=== PATIENT | male | born 1995 | race Caucasian/White ===

== ENCOUNTER 2017-05-06 16:41 | Emergency (ER) | payer SELFPAY ==
[2017-05-06 17:03] VITALS: BP 165/88
--- NOTE | 2017-05-06 17:22 | UC ---
Skin Complaint HPI - HPI Summary HPI Summary: 21 yo male who developed 2 red areas on his right calloway that he assumed were insect bites mild pruritis today they both became markedly more swollen/painful and red no f/c no hx MRSA no n/v/d - History of Current Complaint Chief Complaint: UCSkin Time Seen by Provider: 05/06/17 17:20 Stated Complaint: BUG BITE,INFLAMED Hx Obtained From: Patient Onset/Duration: Gradual Onset, Lasting Days Timing: Constant Onset Severity: Mild Current Severity: Moderate Pain Intensity: 6 Pain Scale Used: 0-10 Numeric Location: Discrete Character: Swelling, Pain, Redness, Raised, Painful Aggravating Factor(s): Touch Associated Signs & Symptoms: Positive: Tenderness Related History: Insect Bite/Sting - ?? - Allergy/Home Medications Allergies/Adverse Reactions: Allergies Allergy/AdvReac Type Severity Reaction Status Date / Time Pollen Extract Allergy Itching Verified 01/28/16 00:32 eyes Review of Systems Constitutional: Negative Skin: Negative Eyes: Negative ENT: Negative Respiratory: Negative Cardiovascular: Negative Gastrointestinal: Negative Genitourinary: Negative Motor: Negative Neurovascular: Negative Musculoskeletal: Negative Neurological: Negative Psychological: Negative Is Patient Immunocompromised?: No All Other Systems Reviewed And Are Negative: Yes PMH/Surg Hx/FS Hx/Imm Hx Previously Healthy: Yes - hx Lyme disease Cardiovascular History: Hypertension - untreated - Surgical History Surgical History: Yes Surgery Procedure, Year, and Place: ear tubes age 2 - Family History Known Family History: Positive: Hypertension, Diabetes - Social History Alcohol Use: Daily Alcohol Amount: 5-6 drinks per day Substance Use Type: Marijuana, Synthetic Drugs, Prescribed, Sedatives Substance Use Comment - Amount & Last Used: use to use cocaine and heroin Smoking Status (MU): Light Every Day Tobacco Smoker Type: Cigarettes Have You Smoked in the Last Year: Yes - Immunization History Most Recent Influenza Vaccination: not this year Most Recent Tetanus Shot: [facility] Most Recent Pneumonia Vaccination: NONE Physical Exam Triage Information Reviewed: Yes Appearance: Well-Appearing, No Pain Distress, Well-Nourished Vital Signs: Initial Vital Signs Temp 98 F 05/06/17 16:48 Pulse 85 05/06/17 16:48 Resp 18 05/06/17 16:48 BP 165/88 05/06/17 16:48 Pulse Ox 100 05/06/17 16:48 Vital Signs Reviewed: Yes Eyes: Positive: Conjunctiva Clear ENT: Positive: Hearing grossly normal. Negative: Nasal congestion, Nasal drainage, Trismus, Muffled/hoarse voice Neck: Positive: Supple, Nontender, No Lymphadenopathy Respiratory: Positive: Lungs clear, Normal breath sounds, No respiratory distress, No accessory muscle use Cardiovascular: Positive: RRR, No Murmur Musculoskeletal: Positive: Strength Intact, ROM Intact Neurological: Positive: Alert Psychological Exam: Normal Skin Exam: Other - see image Course/Dx - Diagnoses Provider Diagnoses: right calloway cellulitis? early abscess. concern for MRSA Procedures - Procedure Summary Procedure Summary: procedure: Incision and drainage right calloway permit signed time out sterile prep anest with 2 cc lido /ep incised with 11 blade <1cc serosangious fluid expressed and cultured...no ani pus - Incision and Drainage Site: right calloway Anesthesia: Local Instrument(s): Scalpel Packing: Other - none Discharge - Discharge Plan Condition: Stable Disposition: HOME Prescriptions: Cephalexin CAP* [Keflex CAP*] 500 mg PO QID #28 cap Naproxen Sodium [Naproxen Sodium 500 MG TAB] 500 mg PO BID PRN #28 tab PRN Reason: Pain Sulfamethox/Trimethoprim DS* [Bactrim DS 800/160 TAB*] 1 tab PO BID #14 tab Patient Education Materials: Cellulitis (ED) Forms: *Work Release Referrals: [facility] [Outside] [facility] [place] [Outside] - As Soon As Possible No Primary Care Phys,NOPCP [Primary Care Provider] - Additional Instructions: we will start you on two antibiotics initially we may be able to just keep you on one when we get the culture results back it takes 2-3 days to get the culture results back rest elevate frequent warm soapy compresses while awake TO ER FOR: increased pain increased swelling/redness FEVER vomiting recheck in 2 days if not improved take another bactrim tonight take two keflex tonight YOU NEED TO HAVE YOUR BLOOD PRESSURE FOLLOWED today it was high Images Front/Back of Body, Lg ([place]): 1 - ? bite with surrounding eryhema 2 - area of redness/induration ? flutuance
[2017-05-06] MEDS ORDERED: Lidocaine 2% W/EPI 1:100,000* 20 ML MDV INJ ONE (17:32)
[2017-05-06] MEDS ORDERED: Sulfamethox/Trimethoprim DS 800/160* TAB PO ONE (17:32)
== END 2017-05-06 18:10 | disposition home or self-care (01) ==
LOC: UCEAST 16:41
DX: L02.415 Cutaneous abscess of right lower limb (principal); F17.210 Nicotine dependence, cigarettes, uncomplicated
CPT/HCPCS: 10060; 87070; 87205; 99212; A9270-GY; G0463

== ENCOUNTER 2017-11-18 23:26 | Emergency (ER) | payer SELFPAY ==
[2017-11-18] MEDS ORDERED: Ibuprofen TAB* 600 MG PO ONE (23:43)
[2017-11-18] MEDS ORDERED: oxyCODONE/Acetamin 5/325 MG* TAB PO ONE (23:43)
[2017-11-18] MEDS ORDERED: Bacitracin OINTMENT* 0.5% 0.5 oz TUBE TOPICAL ONE (23:43)
[2017-11-19 00:14] VITALS: BP 156/109
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
== END 2017-11-19 00:13 | disposition home or self-care (01) ==
LOC: ED 23:26
DX: T22.232A Burn of second degree of left upper arm, initial encounter (principal); T22.122A Burn of first degree of left elbow, initial encounter; T31.0 Burns involving less than 10% of body surface; X12.XXXA Contact with other hot fluids, initial encounter; Y93.G3 Activity, cooking and baking; Y92.511 Restaurant or cafe as the place of occurrence of the external cause; Y99.0 Civilian activity done for income or pay; K21.9 Gastro-esophageal reflux disease without esophagitis; F90.9 Attention-deficit hyperactivity disorder, unspecified type; F32.9 Major depressive disorder, single episode, unspecified; Z91.5 Personal history of self-harm; F17.210 Nicotine dependence, cigarettes, uncomplicated
CPT/HCPCS: 16020; 99282; A9270-GY

== ENCOUNTER 2019-01-11 16:51 | Emergency (ER) | payer OTHER ==
[2019-01-11] MEDS ORDERED: NS 0.9% 1000 ML** 1,000 ML IV ONE (20:23)
[2019-01-11] MEDS ORDERED: Pantoprazole IV* 40 MG IV ONE (20:23)
[2019-01-11 20:43] LABS: ABS Basophils 0.1 10^3/ul (0-0.2); ABS Eosinophils 0.2 10^3/ul (0-0.6); ABS Lymphocytes 2.3 10^3/ul (1.0-4.8); ABS Monocytes 0.8 10^3/ul (0-0.8); ABS Neutrophils 4.3 10^3/ul (1.5-7.7); Eosinophil % 2.8 %; Hematocrit 46 % (42-52); Lymphocyte % 29.7 %; Mean Corpuscular HGB Conc 35 g/dL (31-36); Mean Corpuscular Hemoglobin 32 pg (27-31); Mean Corpuscular Volume 92 fL (80-94); Mean Platelet Volume 7.4 fL (7.4-10.4); Nucleated Red Blood Cells % 0.2; Platelet Count 258 10^3/uL (150-450); Red Blood Count 4.94 10^6 /uL (4.18-5.48); Red Cell Distribution Width 13 % (10-15); White Blood Count 7.6 10^3/uL (3.5-10.8)
[2019-01-11 21:00] LABS: Albumin 4.5 g/dL (3.2-5.2); Albumin/Globulin Ratio 1.6 (1-3); BUN/Creatinine Ratio 11.5 (8-20); Calcium 9.7 mg/dL (8.6-10.3); EGFR African American 116.4 (>60); EGFR Non-African American 96.2 (>60); Globulin 2.8 g/dL (2-4); Magnesium 2.1 mg/dL (1.9-2.7); Potassium 4.7 mmol/L (3.5-5.0); Total Bilirubin 0.5 mg/dL (0.2-1.0); Total Protein 7.3 g/dL (6.4-8.9)
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
[2019-01-11] MEDS ORDERED: Iohexol 300* (CONTRAST) 10 ML SDV IV ONE (21:34)
[2019-01-11 23:54] VITALS: BP 0/0
== END 2019-01-11 23:40 | disposition home or self-care (01) ==
LOC: ED 16:51
DX: R10.32 Left lower quadrant pain (principal); M54.9 Dorsalgia, unspecified; F17.210 Nicotine dependence, cigarettes, uncomplicated
CPT/HCPCS: 36415; 74177; 80053; 82150; 83690; 83735; 85025; 86140; 99282; Q9967

== ENCOUNTER 2019-10-12 10:09 | Inpatient (IN) | payer OTHER ==
[2019-10-12] MEDS ORDERED: NS 0.9% 1000 ml BAG 1,000 ML IV ONE ×2 (10:29→13:52)
[2019-10-12] MEDS ORDERED: Morphine 4 MG/ML VIAL (1 ml) IV ONE ×2 (10:29→12:20)
[2019-10-12 11:10] LABS: ABS Eosinophils 0.4 10^3/ul (0-0.6); ABS Lymphocytes 1.7 10^3/ul (1.0-4.8); ABS Monocytes 0.8 10^3/ul (0-0.8); Eosinophil % 4.4 %; Hematocrit 42 % (42-52); Hemoglobin 14.7 g/dL (14.0-18.0); Lymphocyte % 18.3 %; Mean Corpuscular HGB Conc 35 g/dL (31-36); Mean Corpuscular Hemoglobin 32 pg (27-31); Mean Corpuscular Volume 92 fL (80-94); Platelet Count 379 10^3/uL (150-450); Red Blood Count 4.56 10^6 /uL (4.18-5.48); Red Cell Distribution Width 13 % (10-15); White Blood Count 9.2 10^3/uL (3.5-10.8)
[2019-10-12 11:35] LABS: Albumin 4.2 g/dL (3.2-5.2); Albumin/Globulin Ratio 1.7 (1-3); C Reactive Protein 20.8 mg/L (<8.01); EGFR African American 110.2 (>60); Globulin 2.5 g/dL (2-4); Potassium 4.1 mmol/L (3.5-5.0); Total Bilirubin 0.4 mg/dL (0.2-1.0); Total Protein 6.7 g/dL (6.4-8.9)
[2019-10-12] MEDS ORDERED: Iohexol 300 (CONTRAST) 10 ML SDV IV ONE (11:59)
[2019-10-12] MEDS ORDERED: Piperacillin/Tazobac ADVAN(*) 3.375 GM in NS 0.9% 100 ml BAG 100 ML IVPB ONE (12:14)
[2019-10-12] MEDS: HYDROmorphone 0.5 MG/0.5 ML SYRINGE IV SLOW PU PRN ×6 (14:04→23:55)
[2019-10-12] MEDS ORDERED: Zosyn per Pharmacy NOTE FOLLOW UP PRN (14:10)
[2019-10-12] MEDS: NS 0.9% 1000 ml BAG 1,000 ML IV SCH (14:54)
[2019-10-12 15:13] LABS: Urine Appearance Clear; Urine Bilirubin Negative (Negative); Urine Blood Negative (Negative); Urine Color Straw; Urine Glucose Negative (Negative); Urine Ketones Negative (Negative); Urine Nitrite Negative (Negative); Urine Protein Negative (Negative); Urine Specific Gravity 1.042 (1.010-1.030); Urine Urobilinogen Negative (Negative)
[2019-10-12] MEDS ORDERED: Thiamine 100 MG/ML 2 ml VIAL (200 mg) IM ONE (15:42)
[2019-10-12] MEDS ORDERED: LORazepam 1 mg TAB (*) PO SCH (16:00)
[2019-10-12] MEDS: Piperacillin/Tazobactam VIAL*) 3.375 GM in NS 0.9% 100 ml BAG 100 ML IVPB SCH ×2 (16:21→23:59)
[2019-10-12] MEDS: Multivitamins/Minerals TAB PO SCH (16:24)
[2019-10-13] MEDS: HYDROmorphone 0.5 MG/0.5 ML SYRINGE IV SLOW PU PRN ×13 (01:27→23:31)
[2019-10-13 04:23] LABS: Hematocrit 40 % (42-52); Mean Corpuscular HGB Conc 35 g/dL (31-36); Mean Corpuscular Hemoglobin 32 pg (27-31); Mean Corpuscular Volume 92 fL (80-94); Mean Platelet Volume 7.3 fL (7.4-10.4); Platelet Count 328 10^3/uL (150-450); Red Blood Count 4.39 10^6 /uL (4.18-5.48); Red Cell Distribution Width 12 % (10-15); White Blood Count 13.1 10^3/uL (3.5-10.8)
[2019-10-13 04:40] LABS: Albumin 3.8 g/dL (3.2-5.2); Albumin/Globulin Ratio 1.4 (1-3); C Reactive Protein 143.66 mg/L (<8.01); Calcium 8.9 mg/dL (8.6-10.3); EGFR African American 110.2 (>60); Globulin 2.8 g/dL (2-4); Potassium 3.6 mmol/L (3.5-5.0); Total Bilirubin 0.9 mg/dL (0.2-1.0); Total Protein 6.6 g/dL (6.4-8.9)
[2019-10-13 04:55] LABS: ABS Basophils 0.1 10^3/ul (0-0.2); ABS Eosinophils 0.1 10^3/ul (0-0.6); ABS Lymphocytes 1.2 10^3/ul (1.0-4.8); ABS Monocytes 0.9 10^3/ul (0-0.8); Eosinophil % 0.8 %; Lymphocyte % 9.6 %
[2019-10-13] MEDS: NS 0.9% 1000 ml BAG 1,000 ML IV SCH ×4 (06:15→21:06)
[2019-10-13] MEDS: Multivitamins/Minerals TAB PO SCH (08:03)
[2019-10-13] MEDS: Piperacillin/Tazobactam VIAL*) 3.375 GM in NS 0.9% 100 ml BAG 100 ML IVPB SCH ×2 (08:03→16:14)
[2019-10-13] MEDS ORDERED: Influenza VAC *QUAD* 2019-20* 0.5 ML SYRINGE IM ONE (09:00)
[2019-10-13 11:14] LABS: Chlamydia trachomatis NAA Negative (Negative); Neisseria gonorrhoeae (GC) NAA Negative (Negative)
[2019-10-13] MEDS ORDERED: Midazolam 5 mg/5 ml VIAL 1 mg/ml 5 ml VIAL (5 mg) ONE (11:27)
[2019-10-13] MEDS ORDERED: fentaNYL 100 mcg/2 ml 50 MCG/ML VIAL ONE (11:27)
[2019-10-13] MEDS ORDERED: Rocuronium 50 mg VIAL 10 mg/ml 5 ml VIAL (50 mg) ONE (11:30)
[2019-10-13] MEDS: Nicotine PATCH 21 MG/24 HR PATCH TRANSDERM SCH (11:43)
[2019-10-14] MEDS: Piperacillin/Tazobactam VIAL*) 3.375 GM in NS 0.9% 100 ml BAG 100 ML IVPB SCH ×3 (00:34→18:20)
[2019-10-14] MEDS: HYDROmorphone 0.5 MG/0.5 ML SYRINGE IV SLOW PU PRN ×6 (00:35→09:17)
[2019-10-14] MEDS: NS 0.9% 1000 ml BAG 1,000 ML IV SCH ×3 (04:24→14:42)
[2019-10-14 05:53] LABS: ABS Basophils 0.1 10^3/ul (0-0.2); ABS Eosinophils 0.1 10^3/ul (0-0.6); ABS Lymphocytes 0.9 10^3/ul (1.0-4.8); Eosinophil % 0.4 %; Hematocrit 41 % (42-52); Hemoglobin 13.9 g/dL (14.0-18.0); Lymphocyte % 6.9 %; Mean Corpuscular HGB Conc 34 g/dL (31-36); Mean Corpuscular Hemoglobin 32 pg (27-31); Mean Corpuscular Volume 93 fL (80-94); Platelet Count 322 10^3/uL (150-450); Red Blood Count 4.39 10^6 /uL (4.18-5.48); Red Cell Distribution Width 12 % (10-15); White Blood Count 13.3 10^3/uL (3.5-10.8)
[2019-10-14 06:09] LABS: C Reactive Protein 217.76 mg/L (<8.01); Calcium 8.8 mg/dL (8.6-10.3); EGFR African American 127.7 (>60); EGFR Non-African American 105.5 (>60); Potassium 3.5 mmol/L (3.5-5.0)
[2019-10-14] MEDS: Multivitamins/Minerals TAB PO SCH (07:46)
[2019-10-14] MEDS: Nicotine PATCH 21 MG/24 HR PATCH TRANSDERM SCH (07:46)
[2019-10-14] MEDS ORDERED: Bupivacaine 0.25% SDV 30 ML ONE (08:56)
[2019-10-14] MEDS ORDERED: fentaNYL 250 mcg/5 ml 50 MCG/ML 5 ml VIAL (250 MCG) ONE (09:41)
[2019-10-14] MEDS ORDERED: Midazolam 10 mg/10 ml VIAL 1 mg/ml 10 ml VIAL (10 mg) ONE (09:41)
[2019-10-14] MEDS ORDERED: Rocuronium 50 mg VIAL 10 mg/ml 5 ml VIAL (50 mg) ONE (09:41)
[2019-10-14] MEDS ORDERED: Ketamine HCL 50 mg/ml 10 ml VIAL (500 MG) ONE (09:41)
[2019-10-14] MEDS ORDERED: Lidocaine 2% PF 5 ML VIAL ONE (10:25)
[2019-10-14] MEDS ORDERED: HYDROmorphone 1 MG/1 ML SYRINGE ONE ×2 (10:26→12:01)
[2019-10-14] MEDS ORDERED: Ondansetron 4 mg VIAL 2 MG/ML 2 ml VIAL ONE (10:26)
[2019-10-14] MEDS ORDERED: Propofol 10 MG/ML 20 ML BTL ONE (10:26)
[2019-10-14] MEDS ORDERED: Prochlorperazine 5 mg/ml 2 ml VIAL (10 mg) ONE ×2 (10:26→12:48)
[2019-10-14] MEDS ORDERED: Sugammadex 500 MG/5 ML 5 ml VIAL IV PUSH ONE (10:26)
[2019-10-14] MEDS ORDERED: HYDROmorphone 1 MG/1 ML SYRINGE IV PRN (10:35)
[2019-10-14] MEDS ORDERED: Naloxone 0.4 mg VIAL 0.4 mg/ml 1 ml VIAL IV PRN (10:35)
[2019-10-14] MEDS ORDERED: Prochlorperazine 5 mg/ml 2 ml VIAL (10 mg) IV PRN (10:35)
[2019-10-14] MEDS ORDERED: fentaNYL 100 mcg/2 ml 50 MCG/ML VIAL ONE (12:47)
[2019-10-14] MEDS: fentaNYL 100 mcg/2 ml 50 MCG/ML VIAL IV PRN ×2 (12:49→13:42)
[2019-10-14] MEDS ORDERED: Naloxone 0.4 mg VIAL 0.4 mg/ml 1 ml VIAL IV PUSH PRN (13:09)
[2019-10-14] MEDS: HYDROmorphone PCA 20 MG/20 ML PCA.SYRING PCA SCH (14:53)
[2019-10-14] MEDS ORDERED: HYDROmorphone PCA 20 MG/20 ML PCA.SYRING PCA SCH (15:00)
[2019-10-14 15:23] LABS: ABS Lymphocytes 0.9 10^3/ul (1.0-4.8); ABS Monocytes 1.1 10^3/ul (0-0.8); Eosinophil % 0.1 %; Hematocrit 44 % (42-52); Hemoglobin 15.3 g/dL (14.0-18.0); Lymphocyte % 6.3 %; Mean Corpuscular HGB Conc 35 g/dL (31-36); Mean Corpuscular Hemoglobin 32 pg (27-31); Mean Corpuscular Volume 92 fL (80-94); Platelet Count 347 10^3/uL (150-450); Red Blood Count 4.77 10^6 /uL (4.18-5.48); Red Cell Distribution Width 12 % (10-15); White Blood Count 14.2 10^3/uL (3.5-10.8)
[2019-10-14 15:31] LABS: Activated Partial Thrombo Time 31.4 seconds (26.0-38.0); INR 1.16 (0.82-1.09)
[2019-10-14 15:39] LABS: EGFR African American 122.8 (>60); EGFR Non-African American 101.5 (>60)
[2019-10-14] MEDS: Famotidine IV 10 MG/ML 2 ml VIAL (20 mg) IV SLOW PU SCH (21:30)
[2019-10-15] MEDS: Piperacillin/Tazobactam VIAL*) 3.375 GM in NS 0.9% 100 ml BAG 100 ML IVPB SCH ×3 (00:26→16:09)
[2019-10-15] MEDS: NS 0.9% 1000 ml BAG 1,000 ML IV SCH ×2 (04:43→19:02)
[2019-10-15 05:27] LABS: Hematocrit 42 % (42-52); Hemoglobin 14.5 g/dL (14.0-18.0); Mean Corpuscular HGB Conc 35 g/dL (31-36); Mean Corpuscular Hemoglobin 32 pg (27-31); Mean Corpuscular Volume 93 fL (80-94); Mean Platelet Volume 7.3 fL (7.4-10.4); Platelet Count 353 10^3/uL (150-450); Red Blood Count 4.51 10^6 /uL (4.18-5.48); Red Cell Distribution Width 13 % (10-15); White Blood Count 11.1 10^3/uL (3.5-10.8)
[2019-10-15 05:42] LABS: BUN/Creatinine Ratio 8.5 (8-20); EGFR African American 118.3 (>60); EGFR Non-African American 97.8 (>60); Potassium 3.9 mmol/L (3.5-5.0)
[2019-10-15] MEDS: Multivitamins/Minerals TAB PO SCH (07:53)
[2019-10-15] MEDS: HYDROmorphone PCA 20 MG/20 ML PCA.SYRING PCA SCH (08:01)
[2019-10-15] MEDS: Famotidine IV 10 MG/ML 2 ml VIAL (20 mg) IV SLOW PU SCH ×2 (09:56→22:09)
[2019-10-15] MEDS: Heparin 5000 UNITS/ML VIAL(*) 1 ml vial SUBCUT SCH ×2 (09:58→22:09)
[2019-10-15] MEDS: Nicotine PATCH 21 MG/24 HR PATCH TRANSDERM SCH (10:02)
[2019-10-16] MEDS: Piperacillin/Tazobactam VIAL*) 3.375 GM in NS 0.9% 100 ml BAG 100 ML IVPB SCH ×3 (00:19→17:06)
[2019-10-16 04:49] LABS: ABS Eosinophils 0.5 10^3/ul (0-0.6); ABS Lymphocytes 0.9 10^3/ul (1.0-4.8); ABS Monocytes 1.2 10^3/ul (0-0.8); Eosinophil % 4.8 %; Hematocrit 38 % (42-52); Hemoglobin 13.2 g/dL (14.0-18.0); Lymphocyte % 9.7 %; Mean Corpuscular HGB Conc 35 g/dL (31-36); Mean Corpuscular Hemoglobin 33 pg (27-31); Mean Corpuscular Volume 93 fL (80-94); Mean Platelet Volume 7.1 fL (7.4-10.4); Platelet Count 364 10^3/uL (150-450); Red Blood Count 4.05 10^6 /uL (4.18-5.48); Red Cell Distribution Width 13 % (10-15); White Blood Count 9.6 10^3/uL (3.5-10.8)
[2019-10-16 05:09] LABS: BUN/Creatinine Ratio 11.9 (8-20); Calcium 8.5 mg/dL (8.6-10.3); EGFR African American 174.9 (>60); EGFR Non-African American 144.5 (>60); Magnesium 1.7 mg/dL (1.9-2.7); Phosphorus 3.4 mg/dL (2.5-5.0); Potassium 3.6 mmol/L (3.5-5.0)
[2019-10-16] MEDS: NS 0.9% 1000 ml BAG 1,000 ML IV SCH ×2 (08:10→21:14)
[2019-10-16] MEDS: Famotidine IV 10 MG/ML 2 ml VIAL (20 mg) IV SLOW PU SCH ×2 (08:29→20:45)
[2019-10-16] MEDS: Heparin 5000 UNITS/ML VIAL(*) 1 ml vial SUBCUT SCH ×2 (08:29→20:45)
[2019-10-16] MEDS: Multivitamins/Minerals TAB PO SCH (08:30)
[2019-10-16] MEDS: Nicotine PATCH 21 MG/24 HR PATCH TRANSDERM SCH (08:30)
[2019-10-16] MEDS: HYDROmorphone PCA 20 MG/20 ML PCA.SYRING PCA SCH (08:40)
[2019-10-17] MEDS: Piperacillin/Tazobactam VIAL*) 3.375 GM in NS 0.9% 100 ml BAG 100 ML IVPB SCH ×3 (00:37→16:50)
[2019-10-17] MEDS: Ondansetron 4 mg VIAL 2 MG/ML 2 ml VIAL IV PRN ×3 (02:13→21:12)
[2019-10-17 02:58] LABS: Urine Appearance Cloudy; Urine Bilirubin Negative (Negative); Urine Blood Negative (Negative); Urine Color Yellow; Urine Glucose Negative (Negative); Urine Ketones 2+ (Negative); Urine Nitrite Negative (Negative); Urine Protein Negative (Negative); Urine Specific Gravity 1.027 (1.010-1.030); Urine Urobilinogen Negative (Negative)
[2019-10-17 06:17] LABS: ABS Eosinophils 0.3 10^3/ul (0-0.6); ABS Lymphocytes 0.8 10^3/ul (1.0-4.8); ABS Monocytes 0.9 10^3/ul (0-0.8); Eosinophil % 3.2 %; Hematocrit 40 % (42-52); Hemoglobin 14.1 g/dL (14.0-18.0); Mean Corpuscular HGB Conc 35 g/dL (31-36); Mean Corpuscular Hemoglobin 33 pg (27-31); Mean Corpuscular Volume 92 fL (80-94); Mean Platelet Volume 7.2 fL (7.4-10.4); Nucleated Red Blood Cells % 0.1; Platelet Count 442 10^3/uL (150-450); Red Blood Count 4.33 10^6 /uL (4.18-5.48); Red Cell Distribution Width 13 % (10-15); White Blood Count 9.4 10^3/uL (3.5-10.8)
[2019-10-17] MEDS: Famotidine IV 10 MG/ML 2 ml VIAL (20 mg) IV SLOW PU SCH ×2 (08:27→21:13)
[2019-10-17] MEDS: Heparin 5000 UNITS/ML VIAL(*) 1 ml vial SUBCUT SCH ×2 (08:27→21:12)
[2019-10-17] MEDS: Multivitamins/Minerals TAB PO SCH (08:27)
[2019-10-17] MEDS: Nicotine PATCH 21 MG/24 HR PATCH TRANSDERM SCH (08:27)
[2019-10-17] MEDS ORDERED: Lorazepam PYXIS KEY PRN (09:55)
[2019-10-17] MEDS: LORazepam 2 mg VIAL 1 ml IV PUSH PRN ×3 (10:08→22:45)
[2019-10-17] MEDS: Phenol 1.4% Throat Spray 177 ml BTL MT PRN ×3 (12:39→21:22)
[2019-10-17] MEDS: NS 0.9% 1000 ml BAG 1,000 ML IV SCH ×2 (14:44→21:11)
[2019-10-17] MEDS: HYDROmorphone PCA 20 MG/20 ML PCA.SYRING PCA SCH (19:14)
[2019-10-18] MEDS: Piperacillin/Tazobactam VIAL*) 3.375 GM in NS 0.9% 100 ml BAG 100 ML IVPB SCH ×3 (00:29→15:58)
[2019-10-18] MEDS: NS 0.9% 1000 ml BAG 1,000 ML IV SCH ×2 (04:04→18:33)
[2019-10-18 04:44] LABS: ABS Eosinophils 0.6 10^3/ul (0-0.6); ABS Lymphocytes 1.3 10^3/ul (1.0-4.8); ABS Monocytes 0.9 10^3/ul (0-0.8); Eosinophil % 8.4 %; Hematocrit 35 % (42-52); Hemoglobin 12.2 g/dL (14.0-18.0); Lymphocyte % 17.3 %; Mean Corpuscular HGB Conc 35 g/dL (31-36); Mean Corpuscular Hemoglobin 32 pg (27-31); Mean Corpuscular Volume 92 fL (80-94); Platelet Count 400 10^3/uL (150-450); Red Blood Count 3.82 10^6 /uL (4.18-5.48); Red Cell Distribution Width 13 % (10-15); White Blood Count 7.2 10^3/uL (3.5-10.8)
[2019-10-18 04:51] LABS: BUN/Creatinine Ratio 13.6 (8-20); Calcium 7.9 mg/dL (8.6-10.3); EGFR African American 177.9 (>60); EGFR Non-African American 147.1 (>60); Potassium 3.1 mmol/L (3.5-5.0)
[2019-10-18] MEDS: KCL 20 MEQ/100 ML IVPREMIX 20 MEQ/100 ML BAG IV SCH ×2 (09:37→14:07)
[2019-10-18] MEDS: Multivitamins/Minerals TAB PO SCH (09:38)
[2019-10-18] MEDS: Famotidine IV 10 MG/ML 2 ml VIAL (20 mg) IV SLOW PU SCH ×2 (09:38→22:11)
[2019-10-18] MEDS: Nicotine PATCH 21 MG/24 HR PATCH TRANSDERM SCH (09:39)
[2019-10-18] MEDS: Heparin 5000 UNITS/ML VIAL(*) 1 ml vial SUBCUT SCH ×2 (09:39→22:11)
[2019-10-18] MEDS: LORazepam 2 mg VIAL 1 ml IV PUSH PRN ×2 (09:53→15:58)
[2019-10-19] MEDS: Piperacillin/Tazobactam VIAL*) 3.375 GM in NS 0.9% 100 ml BAG 100 ML IVPB SCH ×3 (00:44→17:48)
[2019-10-19] MEDS: NS 0.9% 1000 ml BAG 1,000 ML IV SCH ×2 (02:30→09:27)
[2019-10-19 05:11] LABS: Hematocrit 35 % (42-52); Hemoglobin 12.1 g/dL (14.0-18.0); Mean Corpuscular HGB Conc 35 g/dL (31-36); Mean Corpuscular Hemoglobin 32 pg (27-31); Mean Corpuscular Volume 93 fL (80-94); Mean Platelet Volume 6.7 fL (7.4-10.4); Platelet Count 425 10^3/uL (150-450); Red Blood Count 3.78 10^6 /uL (4.18-5.48); Red Cell Distribution Width 13 % (10-15); White Blood Count 6.7 10^3/uL (3.5-10.8)
[2019-10-19 05:26] LABS: BUN/Creatinine Ratio 9.2 (8-20); EGFR African American 181.1 (>60); EGFR Non-African American 149.7 (>60); Potassium 3.4 mmol/L (3.5-5.0)
[2019-10-19 06:21] LABS: ABS Eosinophils 0.6 10^3/ul (0-0.6); ABS Lymphocytes 1.3 10^3/ul (1.0-4.8); ABS Monocytes 0.8 10^3/ul (0-0.8); Eosinophil % 8.7 %; Lymphocyte % 20.1 %
[2019-10-19] MEDS: Multivitamins/Minerals TAB PO SCH (09:18)
[2019-10-19] MEDS: Famotidine IV 10 MG/ML 2 ml VIAL (20 mg) IV SLOW PU SCH ×2 (09:20→20:08)
[2019-10-19] MEDS: Nicotine PATCH 21 MG/24 HR PATCH TRANSDERM SCH (09:27)
[2019-10-19] MEDS: Heparin 5000 UNITS/ML VIAL(*) 1 ml vial SUBCUT SCH ×2 (09:27→20:07)
[2019-10-19] MEDS: LORazepam 2 mg VIAL 1 ml IV PUSH PRN ×2 (13:29→20:07)
[2019-10-19] MEDS: D5W 1/2 NS 1000 ml BAG 1,000 ML IV SCH ×2 (13:29→23:22)
[2019-10-19] MEDS: KCL 20 MEQ/100 ML IVPREMIX 20 MEQ/100 ML BAG IV SCH ×2 (14:23→19:00)
[2019-10-19] MEDS: HYDROmorphone 0.5 MG/0.5 ML SYRINGE IV SLOW PU PRN ×2 (15:54→20:07)
[2019-10-20] MEDS: Piperacillin/Tazobactam VIAL*) 3.375 GM in NS 0.9% 100 ml BAG 100 ML IVPB SCH ×3 (00:24→16:32)
[2019-10-20 05:09] LABS: ABS Eosinophils 0.5 10^3/ul (0-0.6); ABS Lymphocytes 1.1 10^3/ul (1.0-4.8); ABS Monocytes 0.7 10^3/ul (0-0.8); Hematocrit 35 % (42-52); Hemoglobin 12.6 g/dL (14.0-18.0); Lymphocyte % 17.5 %; Mean Corpuscular HGB Conc 36 g/dL (31-36); Mean Corpuscular Hemoglobin 32 pg (27-31); Mean Corpuscular Volume 91 fL (80-94); Mean Platelet Volume 7.1 fL (7.4-10.4); Platelet Count 479 10^3/uL (150-450); Red Blood Count 3.89 10^6 /uL (4.18-5.48); Red Cell Distribution Width 12 % (10-15); White Blood Count 6.2 10^3/uL (3.5-10.8)
[2019-10-20 05:28] LABS: BUN/Creatinine Ratio 7.6 (8-20); Calcium 8.5 mg/dL (8.6-10.3); EGFR African American 177.9 (>60); EGFR Non-African American 147.1 (>60); Potassium 3.1 mmol/L (3.5-5.0)
[2019-10-20] MEDS: Famotidine IV 10 MG/ML 2 ml VIAL (20 mg) IV SLOW PU SCH ×2 (08:36→20:29)
[2019-10-20] MEDS: Multivitamins/Minerals TAB PO SCH (08:38)
[2019-10-20] MEDS: Nicotine PATCH 21 MG/24 HR PATCH TRANSDERM SCH (08:40)
[2019-10-20] MEDS: Heparin 5000 UNITS/ML VIAL(*) 1 ml vial SUBCUT SCH ×2 (08:42→20:28)
[2019-10-20] MEDS: D5W 1/2 NS 1000 ml BAG 1,000 ML IV SCH ×2 (09:21→22:39)
[2019-10-20] MEDS: KCL 20 MEQ/100 ML IVPREMIX 20 MEQ/100 ML BAG IV SCH ×3 (10:07→16:32)
[2019-10-20] MEDS: HYDROmorphone 0.5 MG/0.5 ML SYRINGE IV SLOW PU PRN ×2 (11:18→20:29)
[2019-10-20] MEDS: LORazepam 2 mg VIAL 1 ml IV PUSH PRN ×2 (13:29→20:29)
[2019-10-21] MEDS: Piperacillin/Tazobactam VIAL*) 3.375 GM in NS 0.9% 100 ml BAG 100 ML IVPB SCH ×3 (00:35→17:19)
[2019-10-21 06:05] LABS: ABS Basophils 0.1 10^3/ul (0-0.2); ABS Eosinophils 0.4 10^3/ul (0-0.6); ABS Lymphocytes 1.3 10^3/ul (1.0-4.8); ABS Monocytes 0.6 10^3/ul (0-0.8); Eosinophil % 8.1 %; Hematocrit 36 % (42-52); Hemoglobin 12.7 g/dL (14.0-18.0); Lymphocyte % 26.6 %; Mean Corpuscular HGB Conc 35 g/dL (31-36); Mean Corpuscular Hemoglobin 33 pg (27-31); Mean Corpuscular Volume 92 fL (80-94); Mean Platelet Volume 6.7 fL (7.4-10.4); Nucleated Red Blood Cells % 0.1; Platelet Count 496 10^3/uL (150-450); Red Cell Distribution Width 13 % (10-15); White Blood Count 4.7 10^3/uL (3.5-10.8)
[2019-10-21 06:28] LABS: Calcium 8.5 mg/dL (8.6-10.3); Potassium 3.4 mmol/L (3.5-5.0)
[2019-10-21 06:33] LABS: BUN/Creatinine Ratio 4.9 (8-20); EGFR African American 140.5 (>60); EGFR Non-African American 116.1 (>60)
[2019-10-21] MEDS: Multivitamins/Minerals TAB PO SCH (08:42)
[2019-10-21] MEDS: Nicotine PATCH 21 MG/24 HR PATCH TRANSDERM SCH (08:43)
[2019-10-21] MEDS: Heparin 5000 UNITS/ML VIAL(*) 1 ml vial SUBCUT SCH ×2 (08:43→21:41)
[2019-10-21] MEDS: Famotidine IV 10 MG/ML 2 ml VIAL (20 mg) IV SLOW PU SCH ×2 (08:43→21:41)
[2019-10-21] MEDS ORDERED: Potassium Chlor 20 meq TAB.ER PO ONE (09:26)
[2019-10-22] MEDS: Piperacillin/Tazobactam VIAL*) 3.375 GM in NS 0.9% 100 ml BAG 100 ML IVPB SCH ×2 (00:40→08:38)
[2019-10-22] MEDS: Multivitamins/Minerals TAB PO SCH (08:28)
[2019-10-22] MEDS: Famotidine IV 10 MG/ML 2 ml VIAL (20 mg) IV SLOW PU SCH (08:29)
[2019-10-22] MEDS: Nicotine PATCH 21 MG/24 HR PATCH TRANSDERM SCH (08:38)
[2019-10-22] MEDS: Heparin 5000 UNITS/ML VIAL(*) 1 ml vial SUBCUT SCH (08:40)
[2019-10-22] MEDS ORDERED: Potassium Chlor 20 meq TAB.ER PO ONE (10:16)
[2019-10-22] MEDS ORDERED: Lorazepam PYXIS KEY ONE (10:44)
[2019-10-22 11:52] VITALS: BP 121/75
== END 2019-10-22 14:29 | disposition home or self-care (01) | DRG 330 ==
LOC: ED 10:09 → SSU 13:11
PROVIDERS: ADMIT Surgery; ATTEND Surgery
PROC: 0DBN0ZZ Excision of Sigmoid Colon, Open Approach (ICD-10-PCS; principal; 2019-10-14)
PROC: 0D1N0Z4 Bypass Sigmoid Colon to Cutaneous, Open Approach (ICD-10-PCS; 2019-10-14)
PROC: 0D9670Z Drainage of Stomach with Drainage Device, Via Natural or Artificial Opening (ICD-10-PCS; 2019-10-14)
DX: K57.20 Diverticulitis of large intestine with perforation and abscess without bleeding (principal); K56.7 Ileus, unspecified; E87.6 Hypokalemia; J30.1 Allergic rhinitis due to pollen; K21.9 Gastro-esophageal reflux disease without esophagitis; F90.9 Attention-deficit hyperactivity disorder, unspecified type; F32.9 Major depressive disorder, single episode, unspecified; F17.210 Nicotine dependence, cigarettes, uncomplicated; F41.9 Anxiety disorder, unspecified; Z80.0 Family history of malignant neoplasm of digestive organs; Z72.89 Other problems related to lifestyle; Z91.5 Personal history of self-harm

== ENCOUNTER 2020-01-19 06:00 | Inpatient (IN) ==
[~2020-01-19 06:00] MED LIST: ERTApenem(*) 1 GM in NS 0.9% 50 ML 50 ML IVPB SCH; Lactated Ringers 1000 ml BAG 1,000 ML IV SCH
[2020-01-19] MEDS ORDERED: Buffered Lidocaine 1% SYRIN 1 ml INTRADERM ONE (06:54)
[2020-01-19] MEDS ORDERED: Bupivacaine 0.25% EPI 200,000 30 ML SDV ONE (07:13)
[2020-01-19] MEDS ORDERED: Succinylcholine 200 mg VIAL 20 mg/ml 10 ml VIAL (200 mg) ONE (07:20)
[2020-01-19] MEDS ORDERED: Lidocaine 2% PF 5 ML VIAL ONE (07:21)
[2020-01-19] MEDS ORDERED: Midazolam 2 mg/2 ml VIAL 1 mg/ml 2 ml VIAL (2 mg) ONE ×2 (07:21→08:02)
[2020-01-19] MEDS ORDERED: Rocuronium 50 mg VIAL 10 mg/ml 5 ml VIAL (50 mg) ONE ×4 (07:21→10:57)
[2020-01-19] MEDS ORDERED: fentaNYL 100 mcg/2 ml 50 MCG/ML VIAL ONE ×4 (07:21→14:14)
[2020-01-19] MEDS ORDERED: Naloxone 0.4 mg VIAL 0.4 mg/ml 1 ml VIAL IV PRN (07:28)
[2020-01-19] MEDS ORDERED: DiMENhydriNATE IV 50 mg/ml 1 ml VIAL IV PUSH PRN (07:28)
[2020-01-19] MEDS ORDERED: Acetaminophen IV 1 GM/100ML 100 ML ONE (07:55)
[2020-01-19] MEDS ORDERED: Dexamethasone IV 4 MG/ML VIAL 1 ml VIAL ONE (07:55)
[2020-01-19] MEDS ORDERED: Ondansetron 4 mg VIAL 2 MG/ML 2 ml VIAL ONE (07:55)
[2020-01-19] MEDS ORDERED: Metoclopramide 5 MG/ML VIAL (10 mg) ONE (07:55)
[2020-01-19] MEDS ORDERED: Propofol 10 MG/ML 20 ML BTL ONE (09:49)
[2020-01-19] MEDS ORDERED: Ondansetron 4 mg VIAL 2 MG/ML 2 ml VIAL IV PRN (13:15)
[2020-01-19] MEDS: fentaNYL 100 mcg/2 ml 50 MCG/ML VIAL IV PRN ×2 (14:20→14:26)
[2020-01-19] MEDS: Lactated Ringers 1000 ml BAG 1,000 ML IV SCH ×2 (15:25→22:55)
[2020-01-19] MEDS: HYDROmorphone 1 MG/1 ML SYRINGE IV SLOW PU PRN ×3 (15:37→23:08)
[2020-01-19] MEDS ORDERED: NS 0.9% 500 ml BAG 500 ML IV ONE (19:47)
[2020-01-19 20:24] LABS: Hematocrit 35 % (42-52); Hemoglobin 12.5 g/dL (14.0-18.0)
[2020-01-19 23:57] LABS: Hematocrit 32 % (42-52); Hemoglobin 11.7 g/dL (14.0-18.0)
[2020-01-20] MEDS: HYDROmorphone 1 MG/1 ML SYRINGE IV SLOW PU PRN ×10 (02:00→23:14)
[2020-01-20] MEDS: Lactated Ringers 1000 ml BAG 1,000 ML IV SCH ×3 (06:00→21:56)
[2020-01-20] MEDS: Heparin 5000 UNITS/ML VIAL(*) 1 ml vial SUBCUT SCH ×3 (06:18→21:38)
[2020-01-20 06:39] LABS: ABS Lymphocytes 1.7 10^3/ul (1.0-4.8); ABS Monocytes 1.1 10^3/ul (0-0.8); Eosinophil % 0.3 %; Hematocrit 32 % (42-52); Hemoglobin 11.5 g/dL (14.0-18.0); Mean Corpuscular HGB Conc 36 g/dL (31-36); Mean Corpuscular Hemoglobin 33 pg (27-31); Mean Corpuscular Volume 91 fL (80-94); Mean Platelet Volume 7.2 fL (7.4-10.4); Platelet Count 255 10^3/uL (150-450); Red Blood Count 3.51 10^6 /uL (4.18-5.48); Red Cell Distribution Width 13 % (10-15); White Blood Count 7.9 10^3/uL (3.5-10.8)
[2020-01-20 06:50] LABS: BUN/Creatinine Ratio 11.3 (8-20); Calcium 8.5 mg/dL (8.6-10.3); EGFR African American 142.5 (>60); EGFR Non-African American 117.8 (>60); Potassium 3.9 mmol/L (3.5-5.0)
[2020-01-21] MEDS: HYDROmorphone 1 MG/1 ML SYRINGE IV SLOW PU PRN ×13 (01:23→23:18)
[2020-01-21] MEDS: Heparin 5000 UNITS/ML VIAL(*) 1 ml vial SUBCUT SCH (05:11)
[2020-01-21 05:30] LABS: ABS Eosinophils 0.1 10^3/ul (0-0.6); ABS Lymphocytes 1.6 10^3/ul (1.0-4.8); Eosinophil % 1.3 %; Hematocrit 25 % (42-52); Lymphocyte % 21.5 %; Mean Corpuscular HGB Conc 36 g/dL (31-36); Mean Corpuscular Hemoglobin 32 pg (27-31); Mean Corpuscular Volume 91 fL (80-94); Mean Platelet Volume 6.9 fL (7.4-10.4); Platelet Count 221 10^3/uL (150-450); Red Cell Distribution Width 13 % (10-15); White Blood Count 7.6 10^3/uL (3.5-10.8)
[2020-01-21 05:47] LABS: BUN/Creatinine Ratio 8.5 (8-20); Calcium 8.3 mg/dL (8.6-10.3); EGFR African American 138.5 (>60); EGFR Non-African American 114.5 (>60); Magnesium 1.6 mg/dL (1.9-2.7); Phosphorus 2.3 mg/dL (2.5-5.0); Potassium 3.5 mmol/L (3.5-5.0)
[2020-01-21] MEDS: Lactated Ringers 1000 ml BAG 1,000 ML IV SCH (07:48)
[2020-01-21] MEDS ORDERED: Magnesium Sulfate IV 1GM/100ML 1 GM/100 ML BAG IV ONE (10:18)
[2020-01-21] MEDS: D5W 1/2 NS KCl 20 meq 1000 ml 1,000 ML IV SCH ×2 (10:40→21:46)
[2020-01-21] MEDS ORDERED: Potassium Phosphate IV 15 MMOLE in NS 0.9% 250 ml 250 ML IVPB ONE (11:00)
[2020-01-21] MEDS: LORazepam 1 mg TAB (*) PO PRN (16:06)
[2020-01-21 17:37] LABS: Hematocrit 24 % (42-52); Hemoglobin 8.7 g/dL (14.0-18.0)
[2020-01-22] MEDS: HYDROmorphone 1 MG/1 ML SYRINGE IV SLOW PU PRN ×8 (00:55→22:32)
[2020-01-22] MEDS: LORazepam 1 mg TAB (*) PO PRN ×3 (00:55→17:49)
[2020-01-22 07:20] LABS: ABS Eosinophils 0.2 10^3/ul (0-0.6); ABS Monocytes 0.8 10^3/ul (0-0.8); Eosinophil % 2.7 %; Hematocrit 24 % (42-52); Hemoglobin 8.6 g/dL (14.0-18.0); Lymphocyte % 16.3 %; Mean Corpuscular HGB Conc 36 g/dL (31-36); Mean Corpuscular Hemoglobin 32 pg (27-31); Mean Corpuscular Volume 89 fL (80-94); Mean Platelet Volume 6.7 fL (7.4-10.4); Platelet Count 210 10^3/uL (150-450); Red Blood Count 2.67 10^6 /uL (4.18-5.48); Red Cell Distribution Width 13 % (10-15); White Blood Count 5.8 10^3/uL (3.5-10.8)
[2020-01-22 07:40] LABS: BUN/Creatinine Ratio 4.4 (8-20); Calcium 8.7 mg/dL (8.6-10.3); EGFR African American 171.9 (>60); EGFR Non-African American 142.1 (>60); Magnesium 1.9 mg/dL (1.9-2.7); Phosphorus 3.5 mg/dL (2.5-5.0); Potassium 3.6 mmol/L (3.5-5.0)
[2020-01-22 07:43] LABS: INR 1.03 (0.82-1.09)
[2020-01-22] MEDS: D5W 1/2 NS KCl 20 meq 1000 ml 1,000 ML IV SCH ×3 (08:24→23:46)
[2020-01-22] MEDS: Nicotine PATCH 7 MG/24 HR PATCH TRANSDERM SCH (10:13)
[2020-01-22] MEDS ORDERED: Magnesium Sulfate IV 1GM/100ML 1 GM/100 ML BAG IV ONE (10:38)
[2020-01-22] MEDS ORDERED: KCL 20 MEQ/100 ML IVPREMIX 20 MEQ/100 ML BAG IV SCH (11:00)
[2020-01-22 14:02] LABS: ABS Eosinophils 0.2 10^3/ul (0-0.6); ABS Lymphocytes 1.2 10^3/ul (1.0-4.8); ABS Monocytes 0.8 10^3/ul (0-0.8); Eosinophil % 2.7 %; Hematocrit 26 % (42-52); Hemoglobin 9.5 g/dL (14.0-18.0); Lymphocyte % 18.5 %; Mean Corpuscular HGB Conc 36 g/dL (31-36); Mean Corpuscular Hemoglobin 32 pg (27-31); Mean Corpuscular Volume 89 fL (80-94); Mean Platelet Volume 6.8 fL (7.4-10.4); Platelet Count 261 10^3/uL (150-450); Red Blood Count 2.95 10^6 /uL (4.18-5.48); Red Cell Distribution Width 13 % (10-15); White Blood Count 6.5 10^3/uL (3.5-10.8)
[2020-01-22 14:18] LABS: EGFR African American 155.9 (>60); EGFR Non-African American 128.9 (>60)
[2020-01-22 14:33] LABS: Activated Partial Thrombo Time 29.2 seconds (26.0-38.0); INR 1.03 (0.82-1.09)
[2020-01-22] MEDS: Heparin 5000 UNITS/ML VIAL(*) 1 ml vial SUBCUT SCH (22:32)
[2020-01-23] MEDS: LORazepam 1 mg TAB (*) PO PRN ×3 (02:26→17:03)
[2020-01-23] MEDS: HYDROmorphone 1 MG/1 ML SYRINGE IV SLOW PU PRN ×6 (02:27→20:02)
[2020-01-23] MEDS: Heparin 5000 UNITS/ML VIAL(*) 1 ml vial SUBCUT SCH ×3 (05:24→22:41)
[2020-01-23 05:57] LABS: Hematocrit 25 % (42-52); Hemoglobin 8.8 g/dL (14.0-18.0)
[2020-01-23] MEDS: Nicotine PATCH 7 MG/24 HR PATCH TRANSDERM SCH (07:59)
[2020-01-24] MEDS: HYDROmorphone 1 MG/1 ML SYRINGE IV SLOW PU PRN (00:08)
[2020-01-24] MEDS: Heparin 5000 UNITS/ML VIAL(*) 1 ml vial SUBCUT SCH (05:27)
[2020-01-24 07:20] VITALS: BP 138/79
== END 2020-01-24 09:00 | disposition home or self-care (01) | DRG 221 ==
LOC: AA 06:00 → SSU 13:15
PROVIDERS: ADMIT Surgery; ATTEND Surgery